=== PATIENT | male | born 1945 | race Hispanic/Latino ===

== ENCOUNTER 2017-12-28 17:45 | Emergency (ER) | payer MEDICARE ==
[~2017-12-28] VITALS: Ht 165.1 cm; Wt 57.6 kg
[2017-12-28 18:22] LABS: BASOPHILS # (AUTO) 0.1 (0.0-0.1); BASOPHILS % 0.9 % (0.0-1.0); EOSINOPHILS # (AUTO) 0.1 (0.0-0.4); EOSINOPHILS % 1.5 % (0.0-6.0); HEMATOCRIT 38.1 % (38.2-49.6); LYMPHOCYTES # (AUTO) 1.3 (1.0-3.2); LYMPHOCYTES % 22.9 % (18.0-39.1); MEAN CORPUSCULAR HEMOGLOBIN 32.7 pg (28-32); MEAN CORPUSCULAR HGB CONC 34.1 g/dL (31-35); MONOCYTES # (AUTO) 0.7 (0.2-0.8); MONOCYTES % 12.4 % (4.4-11.3); NEUTROPHILS # (AUTO) 3.4 (2.1-6.9); NEUTROPHILS % 62.1 % (38.7-80.0); PLATELET COUNT 182 x10e3/uL (140-360); RED BLOOD COUNT 3.97 x10e6/uL (4.3-5.7); RED CELL DISTRIBUTION WIDTH 13.7 % (11.7-14.4)
[2017-12-28 18:31] LABS: INR 1.06
[2017-12-28 18:32] LABS: PARTIAL THROMBOPLASTIN TIME 37.7 seconds (23.8-35.5)
[2017-12-28 18:35] LABS: BILIRUBIN,URINE NEGATIVE (NEGATIVE); CLARITY,URINE SL CLOUDY (CLEAR); COLOR,URINE YELLOW (YELLOW); KETONES,URINE 1+ (NEGATIVE); LEUKOCYTE ESTERASE ,URINE NEGATIVE (NEGATIVE); NITRITE,URINE NEGATIVE (NEGATIVE); PROTEIN,URINE DIPSTICK NEGATIVE (NEGATIVE); URINE UROBILINOGEN 0.2 mg/dL (0.2 - 1)
[2017-12-28 18:39] LABS: ALANINE AMINOTRANSFERASE 14 IU/L (0-55); ALBUMIN 3.5 g/dL (3.5-5.0); ALBUMIN/GLOBULIN RATIO 0.9 (0.8-2.0); ALKALINE PHOSPHATASE 88 IU/L (40-150); ANION GAP 12.1 mmol/L (8-16); BLOOD UREA NITROGEN 17 mg/dL (7-26); BUN/CREATININE RATIO 13 (6-25); CALCIUM 9.7 mg/dL (8.4-10.2); CARBON DIOXIDE 26 mmol/L (22-29); CHLORIDE 105 mmol/L (98-107); CREATINE KINASE 37 IU/L (30-200); CREATININE, SERUM 1.34 mg/dL (0.72-1.25); EST GLOMERULAR FILTRATION RATE 52 ML/MIN (60-); GLUCOSE 115 mg/dL (74-118); POTASSIUM 4.1 mmol/L (3.5-5.1); SODIUM 139 mmol/L (136-145)
[2017-12-28 18:46] LABS: BACTERIA,URINE RARE /HPF; MUCUS,URINE FEW (RARE); RBC,URINE 0-5 /HPF (0-5); WBC,URINE (MAN) 0-5 /HPF (0-5)
[2017-12-28 18:59] LABS: THYROID STIMULATING HORMONE 2.187 uIU/mL (0.350-4.940)
--- NOTE | 2017-12-28 19:00 | Diagnostic Imaging Report ---
PROCEDURE: Frontal and lateral views of the chest. COMPARISON: None. INDICATIONS: SOB, COUGH FEW DAYS FINDINGS: Lines/tubes: None. Lungs: The lungs are well inflated. Dense consolidation/opacity involving the right upper lobe/apex with upward retraction of the minor fissure and right hilum as well as rightward deviation of the trachea. Linear scarring in the left upper lobe. Pleura: There is no pleural effusion or pneumothorax. Elevation of the right hemidiaphragm. Heart and mediastinum: Cardiac silhouette is unremarkable. Pulmonary vasculature is normal Bones: No acute bony abnormality. IMPRESSION: 1. dense consolidation/opacity involving the right upper lobe/apex highly suspicious for primary bronchogenic neoplasm, particularly if there is a prior history of smoking or other high risk factors. Recommend contrast enhanced chest CT for further evaluation. Miller Wagner M.D. Dictated by: Miller Wagner M.D. on 12/28/2017 at 19:02 Electronically approved by: Miller Wagner M.D. on 12/28/2017 at 19:02
[2017-12-28] MEDS ORDERED: ALBUTEROL/IPRATROPIUM 3 ML NEB NEB ONE (21:15)
== END 2017-12-28 22:21 | disposition home or self-care (01) ==
LOC: ER 17:45
DX: R06.00 Dyspnea, unspecified (principal)
CPT/HCPCS: 36415; 71046; 80053; 81001; 82550; 82553; 83880; 84443; 84484; 85025; 85610; 85730; 87040; 87086; 93005; 94640; 99284